=== PATIENT | female | born 1965 | race Caucasian/White ===

== ENCOUNTER 2024-06-10 08:48 | Emergency (ER) | payer BC, SELFPAY ==
[2024-06-10 08:53] VITALS: BP 146/82
--- NOTE | 2024-06-10 10:06 | ED.GENMED ---
History of Present Illness
General
Chief Complaint: DVT/Possible Blood Clot
Source: patient
Exam Limitations: none
Time Seen by Provider: 06/10/24 09:00
Nursing documentation reviewed up to this point in time: agreed with
History of Present Illness
History of Present Illness:
pt is a58 y/o F
just 2 weeks ago started a bioorganic estrogen for menopausal symptoms
here for L calf pain/swelling
started 5 days ago in left anterior lower leg pain with walking
now she notices more swelling than she appreicated before and pain behind the knee and in the calf
no cp, sob
no numbness/tigling/weakness
Past History
Past History
ED Past Medical History: None
ED Past Surgical History: None
Social History
Tobacco: Non-smoker
Alcohol: None
Drug: None
Personal:
Living: with family
Review of Systems
Review of Systems
Allergies reviewed?: Yes
All Other Systems: Not applicable
Phy Exam
Physical Exam
Physical Exam:
GENERAL: Alert , in no apparent distress, comfortable at rest
HEAD: NCAT
CV: 2+ DP PULSES B/L
NEUROLOGICAL: Alert and oriented, no focal neuro deficits, , 5/5 strength, sensation intact, ambulation normal
SKIN: Warm and dry, normal skin inspection LLE
MUSCULOSKELETAL: mild edema of the L calf
mild tenderness with palpation
soft
normalcopartment
normal knee/ankle full rom
pulses normal
PSYCH: Normal and appropriate interaction.
Course
Orders/Labs/Results
Orders:
Orders
06/10/24 08:58
US Legs, Left [US Periph Venous LOWER Ext LT] Urgent
Comment:
Reason For Exam: r/o DVT LLE
06/10/24 09:22
CR Knee - Left 4 Or More View* Urgent
Comment:
Reason For Exam: left calf/knee pain
Tib/Fib, Left 2 View [CR Leg Tibia/fibula Left 2 Vw] Urgent
Comment:
Reason For Exam: left lower leg pain
Vital Signs
Initial and Last Documented VS:
Initial Vital Signs
Temp Pulse Resp BP Pulse Ox
98.0 F 65 18 146/82 100
06/10/24 08:53 06/10/24 08:53 06/10/24 08:53 06/10/24 08:53 06/10/24 08:53
Last Documented Vital Signs
Temp Pulse Resp BP Pulse Ox
98.0 F 65 18 146/82 100
06/10/24 08:53 06/10/24 08:53 06/10/24 08:53 06/10/24 08:53 06/10/24 08:53
MDM/Problems Addressed
Differential Diagnosis Includes:
dvt, gastroc strain, sifuentes's cyst
MDM/Problems Addressed:
L calf pain and swelling for a few days
started in the anterior lower leg while walking
no weakness, no numbnesss
recently started a bi0-estrogen therapy for menopausea symptoms
no ches tpain or sob
calf is soft, minimal swelling
full knee rom
mild tenderness right anterior lower leg
compartment normal
xrays indep reviewed neg
us neg
d/c home
compression wrap/stocking durin gday
repeat US if still symtpomatic
*Critical Care Note
Total Time (30-74mins, 75-104mins- exclusive of procedures): Not Applicable
ED Attending Note
-
Portions of this chart may have been created with voice recognition software.� Occasional wrong word or��sound alike� substitutions may have occurred due to the inherent limitations of voice recognition software.
Discharge Plan
Departure
Patient Disposition: Home (Routine Discharge)
Date of Disposition: 06/10/24
Time of Disposition: 11:12
Patient with high blood pressure during this ER visit?: No
Condition: Fair
Covid-19: Not Applicable
Discharge Problem:
Calf swelling
Instructions: Swelling, Muscle and bone pain - Discharge instructions
Prescriptions:
No Action
mupirocin 1 GRAM ointment
1 1 applic intranasal BID Qty: 1 0RF
azithromycin [Zithromax] 250 mg tablet
250 mg PO DAILY Qty: 6 0RF
Referrals:
UNKNOWN - PT DOES,NOT KNOW [Family Provider] -
Activity Restrictions/Additional Instructions:
YOUR LEG US WAS NEGATIVE FOR A BLOOD CLOT
YOUR XRAYS WERE NEGATIVE
YOU CAN TRY BETHEL WRAP DURING THE DAY OR A COMPRESSION STOCKING AND REMOVE AT NIGHT
TYLENOL OR MOTRIN FOR PAIN
IF THE LEG CONTINUES TO BE SWOLLEN IN 1-2 WEEKS, HAVE YOUR FAMILY DOCTOR REPEAT THE ULTRASOUND
RETURN TO THE ER FOR ANY CONCERNS.
Interventions
Interventions:
*Risk Screen - Suicide Last Done: 06/10/24 11:41
*General Assessment Last Done: 06/10/24 11:41
*Neglect/Abuse Screening Last Done: 06/10/24 11:41
ED- Fall Risk Assessment Last Done: 06/10/24 11:41
*ED COVID-19 Vaccine History Last Done: 06/10/24 11:41
*Nursing Disposition Last Done: 06/10/24 11:41
ED- Cardiac Assessment Last Done: 06/10/24 11:40
ED- Pulmonary Assessment Last Done: 06/10/24 11:40
ED-Peripheral Vascular Assessment Last Done: 06/10/24 11:42
ED-Skin Assessment Last Done: 06/10/24 11:41
Discharge Date and Time
Discharge Date/Time: 06/10/24 11:42
Print Language: PASHTO
== END 2024-06-10 11:42 | disposition home or self-care (01) ==
LOC: EMR 08:48
PROVIDERS: EMERGENCY PHYSICIAN Emergency Medicine
DX: R22.42 Localized swelling, mass and lump, left lower limb (principal)
CPT/HCPCS: 99284; 29505; 73564; 73590; 93971